=== PATIENT | female | born 1960 | race African-American/Black ===

== ENCOUNTER 2017-01-11 10:57 | Emergency (ER) | payer SELFPAY ==
[~2017-01-11 10:57] MED LIST: LISINOPRIL/HCTZ1 TA1 PO
[2017-01-11 11:14] VITALS: BP 162/104
== END 2017-01-11 13:06 | disposition left against medical advice (07) ==
LOC: ED 10:57
DX: Z53.21 Procedure and treatment not carried out due to patient leaving prior to being seen by health care provider (principal)

== ENCOUNTER 2017-01-12 18:50 | Emergency (ER) | payer SELFPAY ==
[~2017-01-12] VITALS: Ht 154.9 cm; Wt 72.6 kg
[2017-01-12 20:08] LABS: BASOPHIL % 0.8 % (0-2); PLATELET COUNT 203 x10^3mcL (130-400); RED CELL DISTRIBUTION WIDTH 13.5 % (11.5-14.5)
[2017-01-12 20:21] LABS: CALCIUM 9.2 mg/dL (8.5-10.1); CARBON DIOXIDE 31.3 mmol/L (21-32); CREATININE SERUM 1.1 mg/dL (0.6-1.0); POTASSIUM SERUM 3.5 mmol/L (3.5-5.1)
[2017-01-12 20:25] LABS: ALBUMIN 3.7 g/dL (3.4-5.0); BILIRUBIN TOTAL 0.3 mg/dL (0.20-1.00); TOTAL PROTEIN, SERUM 7.2 g/dL (6.4-8.2)
[2017-01-12 20:26] LABS: CHOLESTEROL/HDL RATIO 4.1
[2017-01-12 20:34] LABS: T3 TOTAL 1.09 ng/mL
[2017-01-12 20:36] LABS: FREE T4 1.16 ng/dL (0.76-1.46); FREE THYROXINE INDEX 3.2 ug/dL (1.4-4.5); T4(THYROXINE) 9.1 ug/dL (4.7-13.3)
[2017-01-12 21:21] LABS: UA SPECIFIC GRAVITY 1.015 (1.005-1.035); microscopic required? YES; urine erythrocyte TRACE (NEGATIVE)
[2017-01-12 21:30] VITALS: BP 122/76
== END 2017-01-12 21:30 | disposition home or self-care (01) ==
LOC: ED 18:50
PROVIDERS: Specialist
DX: S46.911A Strain of unspecified muscle, fascia and tendon at shoulder and upper arm level, right arm, initial encounter (principal); S39.012A Strain of muscle, fascia and tendon of lower back, initial encounter; E66.9 Obesity, unspecified; I10 Essential (primary) hypertension; G43.909 Migraine, unspecified, not intractable, without status migrainosus; F17.210 Nicotine dependence, cigarettes, uncomplicated; Z79.2 Long term (current) use of antibiotics; W01.0XXA Fall on same level from slipping, tripping and stumbling without subsequent striking against object, initial encounter; Y93.89 Activity, other specified; Y92.89 Other specified places as the place of occurrence of the external cause; Y99.8 Other external cause status
CPT/HCPCS: 36415; 83880; 84439; J3010; Q0162

== ENCOUNTER 2017-12-08 11:21 | Emergency (ER) | payer SELFPAY ==
[~2017-12-08] VITALS: Ht 175.3 cm; Wt 72.8 kg
[2017-12-08 11:46] VITALS: Ht 175.3 cm; Wt 72.8 kg
[2017-12-08 14:07] VITALS: BP 146/80
[2017-12-09 04:42] LABS: RAPID PLASMA REAGIN Non Reactive (Non Reactive)
== END 2017-12-08 14:07 | disposition home or self-care (01) ==
LOC: ED 11:21
PROVIDERS: Emergency Medicine
DX: A60.04 Herpesviral vulvovaginitis (principal); R10.2 Pelvic and perineal pain; I10 Essential (primary) hypertension; Z88.8 Allergy status to other drugs, medicaments and biological substances
CPT/HCPCS: 86694; 87491; 87591

== ENCOUNTER 2018-03-06 16:40 | Emergency (ER) | payer SELFPAY ==
[~2018-03-06] VITALS: Ht 162.6 cm; Wt 75.3 kg
[2018-03-06 16:52] VITALS: BP 148/90; Ht 162.6 cm; Wt 75.3 kg
== END 2018-03-06 18:16 | disposition home or self-care (01) ==
LOC: ED 16:40
DX: N30.90 Cystitis, unspecified without hematuria (principal); G89.29 Other chronic pain; M54.5 Low back pain; I10 Essential (primary) hypertension; G43.909 Migraine, unspecified, not intractable, without status migrainosus; Z88.1 Allergy status to other antibiotic agents; Z88.6 Allergy status to analgesic agent

== ENCOUNTER 2018-06-07 07:34 | Emergency (ER) | payer SELFPAY ==
[~2018-06-07] VITALS: Ht 160 cm; Wt 72.6 kg
[2018-06-07 07:49] VITALS: Ht 160 cm; Wt 72.6 kg
[2018-06-07 08:58] LABS: UA SPECIFIC GRAVITY 1.015 (1.005-1.035); microscopic required? YES; urine erythrocyte NEGATIVE (NEGATIVE)
[2018-06-07 09:32] VITALS: BP 142/88
== END 2018-06-07 09:53 | disposition home or self-care (01) ==
LOC: ED 07:34
PROVIDERS: Emergency Medicine
DX: M54.9 Dorsalgia, unspecified (principal); M25.519 Pain in unspecified shoulder; R10.9 Unspecified abdominal pain; I10 Essential (primary) hypertension; G43.909 Migraine, unspecified, not intractable, without status migrainosus; Z88.6 Allergy status to analgesic agent; Z88.1 Allergy status to other antibiotic agents; Z88.8 Allergy status to other drugs, medicaments and biological substances
CPT/HCPCS: 87491; 87591; J3010

== ENCOUNTER 2018-10-31 09:11 | Emergency (ER) | payer SELFPAY ==
[~2018-10-31] VITALS: Ht 162.6 cm; Wt 70.3 kg
[2018-10-31 09:24] VITALS: Ht 162.6 cm; Wt 70.3 kg
[2018-10-31 11:08] LABS: BASOPHIL % 0.5 % (0-2); PLATELET COUNT 241 x10^3mcL (130-400); RED CELL DISTRIBUTION WIDTH 13.8 % (11.5-14.5)
[2018-10-31 11:14] LABS: CALCIUM 9.2 mg/dL (8.5-10.1); CARBON DIOXIDE 31.3 mmol/L (21-32); CHLORIDE SERUM 104 mmol/L (98-107); CREATININE SERUM 0.9 mg/dL (0.6-1.0); GFR1 > 60 mL/min; GLUCOSE SERUM 107 mg/dL (74-106); POTASSIUM SERUM 3.8 mmol/L (3.5-5.1); SODIUM SERUM 140 mmol/L (136-145)
[2018-10-31 11:24] LABS: ALBUMIN 3.5 g/dL (3.4-5.0); ALKALINE PHOSPHATASE 57 U/L (46-116); ALT/SGPT 24 U/L (14-59); AST/SGOT 21 U/L (15-37); TOTAL PROTEIN, SERUM 7.1 g/dL (6.4-8.2)
[2018-10-31 12:52] VITALS: BP 147/85
== END 2018-10-31 12:52 | disposition home or self-care (01) ==
LOC: ED 09:11
PROVIDERS: Emergency Medicine
DX: I16.0 Hypertensive urgency (principal); G43.909 Migraine, unspecified, not intractable, without status migrainosus; Z88.8 Allergy status to other drugs, medicaments and biological substances; Z88.1 Allergy status to other antibiotic agents; Z88.6 Allergy status to analgesic agent
CPT/HCPCS: 36415; Q0092

== ENCOUNTER 2018-12-22 19:26 | Emergency (ER) | payer MEDICAID ==
[~2018-12-22] VITALS: Ht 160 cm; Wt 73.9 kg
[2018-12-22 19:30] VITALS: BP 146/87; Ht 160 cm; Wt 73.9 kg
[2018-12-22 20:09] LABS: BASOPHIL % 0.6 % (0-2); PLATELET COUNT 242 x10^3mcL (130-400); RED CELL DISTRIBUTION WIDTH 13.6 % (11.5-14.5)
[2018-12-22 20:17] LABS: CALCIUM 8.9 mg/dL (8.5-10.1); CARBON DIOXIDE 29.5 mmol/L (21-32); CREATININE SERUM 1.1 mg/dL (0.6-1.0); POTASSIUM SERUM 3.2 mmol/L (3.5-5.1)
[2018-12-22 20:21] LABS: ALBUMIN 3.6 g/dL (3.4-5.0); BILIRUBIN TOTAL 0.41 mg/dL (0.20-1.00); TOTAL PROTEIN, SERUM 6.9 g/dL (6.4-8.2)
== END 2018-12-22 22:31 | disposition home or self-care (01) ==
LOC: ED 19:26
DX: R07.89 Other chest pain (principal); I10 Essential (primary) hypertension; G43.909 Migraine, unspecified, not intractable, without status migrainosus; Z88.6 Allergy status to analgesic agent; Z88.1 Allergy status to other antibiotic agents; Z88.9 Allergy status to unspecified drugs, medicaments and biological substances
CPT/HCPCS: 36415; Q0092

== ENCOUNTER 2019-02-11 22:11 | Emergency (ER) | payer SELFPAY ==
[~2019-02-11] VITALS: Ht 160 cm; Wt 72.6 kg
[2019-02-11 22:33] VITALS: BP 156/103; Ht 160 cm; Wt 72.6 kg
== END 2019-02-11 22:41 | disposition left against medical advice (07) ==
LOC: ED 22:11
DX: Z53.21 Procedure and treatment not carried out due to patient leaving prior to being seen by health care provider (principal)

== ENCOUNTER 2019-04-07 19:05 | Emergency (ER) | payer SELFPAY ==
[~2019-04-07] VITALS: Ht 160 cm; Wt 71.0 kg
[2019-04-07 19:08] VITALS: BP 136/82; Ht 160 cm; Wt 71.0 kg
== END 2019-04-07 21:08 | disposition home or self-care (01) ==
LOC: ED 19:05
DX: N39.0 Urinary tract infection, site not specified (principal); I10 Essential (primary) hypertension; G43.909 Migraine, unspecified, not intractable, without status migrainosus; Z88.6 Allergy status to analgesic agent

== ENCOUNTER 2019-07-05 21:17 | Emergency (ER) | payer SELFPAY ==
[~2019-07-05] VITALS: Ht 160 cm; Wt 77.6 kg
[2019-07-05 21:25] VITALS: Ht 160 cm; Wt 77.6 kg
[2019-07-05 23:49] VITALS: BP 167/99
== END 2019-07-05 23:49 | disposition home or self-care (01) ==
LOC: ED 21:17
DX: S33.5XXA Sprain of ligaments of lumbar spine, initial encounter (principal); N30.90 Cystitis, unspecified without hematuria; G43.909 Migraine, unspecified, not intractable, without status migrainosus; I10 Essential (primary) hypertension; Z88.6 Allergy status to analgesic agent; Z88.8 Allergy status to other drugs, medicaments and biological substances; Z88.1 Allergy status to other antibiotic agents; X50.0XXA Overexertion from strenuous movement or load, initial encounter; Y93.89 Activity, other specified; Y92.89 Other specified places as the place of occurrence of the external cause; Y99.8 Other external cause status
CPT/HCPCS: J2270

== ENCOUNTER 2020-03-16 09:34 | Emergency (ER) | payer MEDICAID ==
[~2020-03-16] VITALS: Ht 160 cm; Wt 72.1 kg
[2020-03-16 09:47] VITALS: Ht 160 cm; Wt 72.1 kg
[2020-03-16 11:56] VITALS: BP 155/91
== END 2020-03-16 12:14 | disposition home or self-care (01) ==
LOC: ED 09:34
DX: S69.91XA Unspecified injury of right wrist, hand and finger(s), initial encounter (principal); S59.911A Unspecified injury of right forearm, initial encounter; Z76.0 Encounter for issue of repeat prescription; V49.9XXA Car occupant (driver) (passenger) injured in unspecified traffic accident, initial encounter; Y93.89 Activity, other specified; Y92.89 Other specified places as the place of occurrence of the external cause; Y99.8 Other external cause status